=== PATIENT | female | born 1955 | race Caucasian/White ===

== ENCOUNTER 2016-04-17 23:11 | Emergency (ER) | payer OTHER ==
[2016-04-17 23:37] VITALS: BP 98/61; PULSE 69; RESP 18; TEMP 98.2; O2SAT 96
--- NOTE | 2016-04-18 00:33 | EDPHY ---
H & P Time Seen by Provider: 04/18/16 00:04 HPI/ROS: CHIEF COMPLAINT: Right middle digit distal phalanx injury HISTORY OF PRESENT ILLNESS: 61-year-old female via private vehicle complaining of acute right middle digit injury at the D IP joint when she hyperflexed the D IP joint earlier this evening. She is unable to extend at the DIP joint. No paresthesia. PHYSICAL EXAM (Prior to examination, patient consented to physical exam, hands were washed and my usual and customary physical exam procedures followed) 1) GENERAL: Well-developed, well-nourished, alert and oriented. Appears to be in no acute distress. 2) HEAD: Normocephalic 3) HEENT: sclera anicteric 4) LUNGS: Breathing comfortably. 5) SKIN: Intact. Normal coloration. No ecchymosis. 6) MUSCULOSKELETAL: right middle digit mallet finger at the D IP joint noted. Otherwise flexor extensor function intact 7) NEUROLOGIC: Full sensation Smoking Status: Never smoked Constitutional: Initial Vital Signs Temperature (C) 36.8 C 04/17/16 23:32 Heart Rate 69 04/17/16 23:32 Respiratory Rate 18 04/17/16 23:32 Blood Pressure 98/61 L 04/17/16 23:32 O2 Sat (%) 96 04/17/16 23:32 O2 Delivery Mode Room Air Allergies/Adverse Reactions: Penicillins Allergy (Verified 04/17/16 23:31) paba Allergy (Uncoded 04/17/16 23:31) Home Medications: Medication Instructions Recorded Aspirin [Aspirin 81mg (*)] 04/17/16 Humalog 04/17/16 Metformin HCl [Metformin 1000 mg] 1,000 mg PO 04/17/16 MDM/Departure - MDM Diagnostics: Right third finger, 3 views. History: Pain. Findings: There is mild flexion deformity at the DIP joint. No evidence for acute fracture or dislocation. No significant joint narrowing or periarticular erosion. No evidence for soft tissue calcification. Impression: No evidence for acute fracture. Dictated By: Nav David MD Images reviewed by myself Procedures: Procedure: Splint A Staxx splint was applied by myself n. The splint was adequately immobilizing the joint and distal to the splint the patient's circulation and sensation were intact. Was given orthopedic precautions. ED Course/Re-evaluation: This patient has clinical evidence of a mallet finger. She has been placed in a Stax splint, usual customary orthopedic precautions provided, recommend follow up with Hand surgery - Depart Disposition: Home, Routine, Self-Care Clinical Impression: Mallet finger of right finger(s) Condition: Good Instructions: Jammed Finger (ED) Additional Instructions: Return to the ER immediately if you experience discoloration, have worsening pain, numbness, tingling, or any other symptoms that concern you. If you received x-rays in the emergency department today, be advised, that ligamentous , tendon, muscular, and other non-bony injury cannot be fully ruled out. Try to keep your affected extremity elevated above the level of your chest, and keep cold packs on the affected area, for the next 48 hours. Referrals: Mariama Holt MD [Medical Doctor] - 5-7 days, call for appt. (Dr. Mariama Holt is a hand surgeon)
== END 2016-04-18 00:38 | disposition home or self-care (01) ==
DX: M20.011 Mallet finger of right finger(s) (principal); Z79.82 Long term (current) use of aspirin; X58.XXXA Exposure to other specified factors, initial encounter

== ENCOUNTER → 2016-09-08 | Outpatient (CLI) | payer OTHER | LOC: FIMAGING 16:08 | PROVIDERS: ATTEND Obstetrics & Gynecology Gynecology | DX: Z12.31 Encounter for screening mammogram for malignant neoplasm of breast (principal); Z80.3 Family history of malignant neoplasm of breast | CPT/HCPCS: G0202 ==

== ENCOUNTER → 2017-09-15 | Outpatient (CLI) | payer OTHER | LOC: FIMAGING 15:33 | PROVIDERS: ATTEND Obstetrics & Gynecology Gynecology | DX: Z12.31 Encounter for screening mammogram for malignant neoplasm of breast (principal); Z80.3 Family history of malignant neoplasm of breast ==